=== PATIENT | female | born 1945 | race Asian ===

== ENCOUNTER 2018-01-20 09:08 | Emergency (ER) | payer MEDICAID, MEDICARE, OTHER ==
[~2018-01-20] VITALS: Ht 134.6 cm; Wt 56.8 kg
[~2018-01-20 09:08] MED LIST: ATEN-188 PO; LORA10TA7 PO; MECL-111 PO; SIMV-261 PO
[2018-01-20] MEDS ORDERED: AMLO-511 PO (09:12)
[2018-01-20] MEDS ORDERED: LOSA50TA37 PO (09:12)
[2018-01-20] MEDS ORDERED: ATOR20TA86 PO ×2 (09:12)
[2018-01-20] MEDS ORDERED: MECLIZINE HCL 25 MG TABLET PO ONE (11:15)
[2018-01-20] MEDS ORDERED: HydrOXYzine PAMOATE 50 MG CAPSULE PO ONE (11:15)
[2018-01-20 11:38] VITALS: BP 149/68
[2018-01-20 11:45] LABS: BASOPHILS % (AUTO) 0.7 % (0.0-2.0); EOSINOPHILS % (AUTO) 8.1 % (1.0-6.0); HEMATOCRIT 41.7 % (36-46); LYMPHOCYTES # (AUTO) 2.4 K/uL (1.0-4.8); LYMPHOCYTES % (AUTO) 30.4 % (22.0-44.0); MEAN CORPUSCULAR HEMOGLOBIN 29.2 pg (26.0-34.0); MEAN CORPUSCULAR HGB CONC 33.4 G/dL (31.0-37.0); MEAN CORPUSCULAR VOLUME 87 fL (80-100); MONOCYTES # (AUTO) 0.5 K/uL (0.1-1.0); MONOCYTES % (AUTO) 6.3 % (2.0-9.0); NEUTROPHILS # (AUTO) 4.4 K/uL (1.8-7.7); NEUTROPHILS % (AUTO) 54.5 % (40.0-70.0); PLATELET COUNT (AUTO) 256 K/uL (150-450); RED BLOOD CELL COUNT(AUTO) 4.77 MIL/uL (4.00-5.20); RED CELL DISTRIBUTION WIDTH 12.5 % (11.5-14.5)
[2018-01-20 11:58] LABS: ANION GAP 9 mmol/L (8-16); CALCIUM, TOTAL 9.5 mg/dL (8.8-10.5); CARBON DIOXIDE 29 mmol/L (22-29); CHLORIDE 104 mmol/L (98-107); CREATININE 0.64 mg/dL (0.60-1.30); GLUCOSE,RANDOM 90 mg/dL (70-110); POTASSIUM 4.2 mmol/L (3.5-5.1); SODIUM SERUM 142 mmol/L (136-145); UREA NITROGEN, BLOOD 11 mg/dL (7-18)
[2018-01-20 12:00] LABS: GLOMERULAR FILTR. RATE CALC > 60 mL/min (>60)
== END 2018-01-20 12:20 | disposition home or self-care (01) ==
LOC: EMS 09:09
DX: R42 Dizziness and giddiness (principal); I10 Essential (primary) hypertension; E78.00 Pure hypercholesterolemia, unspecified; K21.9 Gastro-esophageal reflux disease without esophagitis; Z79.899 Other long term (current) drug therapy
CPT/HCPCS: 93005; 99285

== ENCOUNTER 2018-03-29 08:51 | Emergency (ER) | payer OTHER ==
[~2018-03-29] VITALS: Ht 134.6 cm; Wt 61.4 kg
[~2018-03-29 08:51] MED LIST changes: +AMLO-511 PO; -ATEN-188 PO; +ATOR20TA86 PO; -LORA10TA7 PO; +LOSA50TA25 PO; -SIMV-261 PO
[2018-03-29 10:35] VITALS: BP 125/79
== END 2018-03-29 10:36 | disposition home or self-care (01) ==
LOC: EMS 08:52
DX: L85.3 Xerosis cutis (principal); K21.9 Gastro-esophageal reflux disease without esophagitis; E78.00 Pure hypercholesterolemia, unspecified; I10 Essential (primary) hypertension; Z79.899 Other long term (current) drug therapy

== ENCOUNTER 2018-04-28 09:48 | Emergency (ER) | payer OTHER ==
[~2018-04-28] VITALS: Ht 139.7 cm; Wt 54.5 kg
[2018-04-28] MEDS ORDERED: MECLIZINE HCL 25 MG TABLET PO ONE (10:15)
[2018-04-28 10:55] LABS: BASOPHILS % (AUTO) 0.8 % (0.0-2.0); EOSINOPHILS % (AUTO) 8.1 % (1.0-6.0); HEMATOCRIT 43.8 % (36-46); HEMOGLOBIN 14.8 g/dL (12.0-16.0); LYMPHOCYTES # (AUTO) 1.7 K/uL (1.0-4.8); LYMPHOCYTES % (AUTO) 23.5 % (22.0-44.0); MEAN CORPUSCULAR HEMOGLOBIN 29.9 pg (26.0-34.0); MEAN CORPUSCULAR HGB CONC 33.7 G/dL (31.0-37.0); MEAN CORPUSCULAR VOLUME 89 fL (80-100); MONOCYTES # (AUTO) 0.3 K/uL (0.1-1.0); MONOCYTES % (AUTO) 4.5 % (2.0-9.0); NEUTROPHILS # (AUTO) 4.5 K/uL (1.8-7.7); NEUTROPHILS % (AUTO) 63.1 % (40.0-70.0); PLATELET COUNT (AUTO) 255 K/uL (150-450); RED BLOOD CELL COUNT(AUTO) 4.93 MIL/uL (4.00-5.20); RED CELL DISTRIBUTION WIDTH 12.7 % (11.5-14.5)
[2018-04-28 11:10] LABS: ANION GAP 9 mmol/L (8-16); CARBON DIOXIDE 28 mmol/L (22-29); CHLORIDE 102 mmol/L (98-107); GLUCOSE,RANDOM 146 mg/dL (70-110); POTASSIUM 3.5 mmol/L (3.5-5.1); SODIUM SERUM 139 mmol/L (136-145); UREA NITROGEN, BLOOD 14 mg/dL (7-18)
[2018-04-28 11:14] LABS: GLOMERULAR FILTR. RATE CALC > 60 mL/min (>60)
[2018-04-28 11:21] LABS: B-TYPE NATRIURETIC PEPTIDE 29 pg/mL (0-100)
[2018-04-28 11:36] LABS: ALANINE AMINOTRANSFERASE 23 U/L (12-78); ALBUMIN 3.9 g/dL (3.4-5.0); ALKALINE PHOSPHATASE 98 U/L (46-116); ASPARTATE AMINOTRANSFERASE 16 U/L (15-37); BILIRUBIN,TOTAL 0.3 mg/dL (0.1-1.0); CREATINE KINASE, TOTAL ONLY 133 U/L (26-192); TOTAL PROTEIN, SERUM 8.9 g/dL (6.4-8.2)
[2018-04-28 11:54] LABS: APPEARANCE,URINE CLEAR (CLEAR); BILIRUBIN,URINE NEGATIVE (NEGATIVE); GLUCOSE, URINE (UA) NEGATIVE (NEGATIVE); KETONES,URINE NEGATIVE (NEGATIVE); LEUKOCYTE ESTERASE ,URINE NEGATIVE (NEGATIVE); NITRATE,URINE NEGATIVE (NEGATIVE); OCCULT BLOOD,URINE MODERATE (NEGATIVE); PH,URINE 6.5 (5.0-8.0); PROTEIN,URINE POS 1+ (NEGATIVE); UROBILINOGEN,URINE 0.2 mg/dL (<=1.0)
[2018-04-28 12:06] LABS: AMPHET/METH SCREEN,URINE NEGATIVE (NEGATIVE); BARBITURATE SCREEN, URINE NEGATIVE (NEGATIVE); BENZODIAZEPINES SCREEN,URINE NEGATIVE (NEGATIVE); CANNABINOID SCREEN,URINE NEGATIVE (NEGATIVE); COCAINE SCREEN,URINE NEGATIVE (NEGATIVE); METHADONE SCREEN, URINE NEGATIVE (NEGATIVE); OPIATE SCREEN,URINE NEGATIVE (NEGATIVE)
[2018-04-28 12:10] LABS: PHENCYCLIDINE SCREEN,URINE NEGATIVE (NEGATIVE)
[2018-04-28 12:48] LABS: BACTERIA,URINE None Seen /HPF (None Seen); WBC,URINE None Seen /HPF (0-5)
[2018-04-28 13:51] VITALS: BP 127/72
== END 2018-04-28 14:33 | disposition home or self-care (01) ==
LOC: EMS 09:49
DX: H81.391 Other peripheral vertigo, right ear (principal); K21.9 Gastro-esophageal reflux disease without esophagitis; E78.00 Pure hypercholesterolemia, unspecified; I10 Essential (primary) hypertension
CPT/HCPCS: 93005

== ENCOUNTER 2018-06-17 07:45 | Emergency (ER) | payer MEDICARE, OTHER ==
[~2018-06-17] VITALS: Ht 139.7 cm; Wt 59.1 kg
[~2018-06-17 07:45] MED LIST changes: -LOSA50TA25 PO; +LOSA50TA64 PO
[2018-06-17 07:46] VITALS: BP 176/82
[2018-06-17 08:34] LABS: APPEARANCE,URINE CLOUDY (CLEAR); BILIRUBIN,URINE NEGATIVE (NEGATIVE); GLUCOSE, URINE (UA) NEGATIVE (NEGATIVE); KETONES,URINE NEGATIVE (NEGATIVE); LEUKOCYTE ESTERASE ,URINE LARGE (NEGATIVE); NITRATE,URINE NEGATIVE (NEGATIVE); OCCULT BLOOD,URINE MODERATE (NEGATIVE); PH,URINE 6.5 (5.0-8.0); PROTEIN,URINE NEGATIVE (NEGATIVE); UROBILINOGEN,URINE 0.2 mg/dL (<=1.0)
[2018-06-17 08:51] LABS: BACTERIA,URINE Moderate /HPF (None Seen); WBC,URINE 51-100 /HPF (0-5)
== END 2018-06-17 10:36 | disposition home or self-care (01) ==
LOC: EMS 07:45
DX: N39.0 Urinary tract infection, site not specified (principal); E78.00 Pure hypercholesterolemia, unspecified; I10 Essential (primary) hypertension; K21.9 Gastro-esophageal reflux disease without esophagitis; Z79.899 Other long term (current) drug therapy
CPT/HCPCS: 87086

== ENCOUNTER 2018-06-24 10:54 | Emergency (ER) | payer MEDICARE, OTHER ==
[~2018-06-24] VITALS: Ht 139.7 cm; Wt 56.8 kg
[2018-06-24 11:55] VITALS: BP 171/83
== END 2018-06-24 12:27 | disposition home or self-care (01) ==
LOC: EMS 10:54
DX: I10 Essential (primary) hypertension (principal); K21.9 Gastro-esophageal reflux disease without esophagitis; E78.00 Pure hypercholesterolemia, unspecified; Z88.0 Allergy status to penicillin

== ENCOUNTER 2022-10-05 17:14 | Inpatient (IN) | payer MEDICARE, MEDICAID ==
[2022-10-05] VITALS (7 sets, daily range): BP systolic 126–150; BP diastolic 64–78
[~2022-10-05] VITALS: Ht 147.3 cm; Wt 43.1 kg
[~2022-10-05 17:14] MED LIST changes: +AMLO-257 PO; -AMLO-511 PO; +LOSA-382 PO; -LOSA50TA64 PO; -MECL-111 PO; +MECL-160 PO
[2022-10-05] MEDS ORDERED: ASPIRIN 325 MG TABLET PO ONE (17:45)
[2022-10-05] MEDS ORDERED: NITROGLYCERIN 0.4 MG SUBLINGUAL TABLET #25 SL ONE (17:45)
[2022-10-05] MEDS ORDERED: FUROSEMIDE 20 MG/2 ML VIAL IVP ONE ×2 (17:45→19:30)
[2022-10-05] MEDS ORDERED: NITROGLYCERIN 2% (1 GM=INCH) OINTMENT PACKET TP ONE (17:45)
[2022-10-05 18:02] LABS: BASOPHILS % (AUTO) 0.7 % (0.0-2.0); EOSINOPHILS % (AUTO) 2.7 % (1.0-6.0); LYMPHOCYTES # (AUTO) 1.9 K/uL (1.0-4.8); MEAN CORPUSCULAR HEMOGLOBIN 15.7 pg (26.0-34.0); MEAN CORPUSCULAR HGB CONC 27.7 G/dL (31.0-37.0); MEAN CORPUSCULAR VOLUME 57 fL (80-100); MONOCYTES # (AUTO) 0.7 K/uL (0.1-1.0); MONOCYTES % (AUTO) 8.1 % (2.0-9.0); NEUTROPHILS # (AUTO) 5.4 K/uL (1.8-7.7); NEUTROPHILS % (AUTO) 65.5 % (40.0-70.0); PLATELET COUNT (AUTO) 648 K/uL (150-450); RED BLOOD CELL COUNT(AUTO) 2.58 MIL/uL (4.00-5.20)
[2022-10-05 18:04] LABS: HEMATOCRIT 14.6 % (36-46); HEMOGLOBIN 4.1 g/dL (12.0-16.0)
[2022-10-05 18:10] LABS: B-TYPE NATRIURETIC PEPTIDE 874 pg/mL (0-100)
[2022-10-05] MEDS ORDERED: DiphenhydrAMINE HCL 25 MG CAPSULE PO ONE (18:15)
[2022-10-05] MEDS ORDERED: ACETAMINOPHEN 500 MG TABLET PO ONE (18:15)
[2022-10-05 18:16] LABS: ANION GAP 6 mmol/L (8-16); CALCIUM, TOTAL 7.5 mg/dL (8.8-10.5); CARBON DIOXIDE 25 mmol/L (22-29); CHLORIDE 107 mmol/L (98-107); CREATININE 0.59 mg/dL (0.60-1.30); GLOMERULAR FILTR. RATE CALC > 60 mL/min (>60); GLUCOSE,RANDOM 116 mg/dL (70-110); POTASSIUM 3.2 mmol/L (3.5-5.1); SODIUM SERUM 138 mmol/L (136-145); UREA NITROGEN, BLOOD 17 mg/dL (7-18)
[2022-10-05 18:22] LABS: ALBUMIN 1.5 g/dL (3.4-5.0); ALKALINE PHOSPHATASE 61 U/L (46-116); ASPARTATE AMINOTRANSFERASE 12 U/L (15-37); BILIRUBIN,TOTAL 0.1 mg/dL (0.1-1.0); TOTAL PROTEIN, SERUM 5.9 g/dL (6.4-8.2)
[2022-10-05 18:33] LABS: ALANINE AMINOTRANSFERASE 7 U/L (12-78)
[2022-10-05 18:51] LABS: COVID AG,FIA SOURCE NASOPHARYNGEAL
[2022-10-05] MEDS ORDERED: ACETAMINOPHEN 325 MG TABLET PO PRN (19:15)
[2022-10-05] MEDS ORDERED: POTASSIUM CHL 10 MEQ/WATER 50 ML IV PRN (19:15)
[2022-10-05] MEDS ORDERED: ONDANSETRON HCL 4 MG/2 ML VIAL IVP PRN (19:15)
[2022-10-05 20:13] LABS: % IRON SATURATION 2.3 % (22-44)
[2022-10-05 20:20] LABS: APPEARANCE,URINE CLEAR (CLEAR); BILIRUBIN,URINE NEGATIVE (NEGATIVE); GLUCOSE, URINE (UA) NEGATIVE (NEGATIVE); KETONES,URINE NEGATIVE (NEGATIVE); LEUKOCYTE ESTERASE ,URINE NEGATIVE (NEGATIVE); NITRATE,URINE NEGATIVE (NEGATIVE); OCCULT BLOOD,URINE NEGATIVE (NEGATIVE); PH,URINE 6.5 (5.0-8.0); PROTEIN,URINE NEGATIVE (NEGATIVE); SPECIFIC GRAVITIY, URINE 1.007 (1.003-1.030); UROBILINOGEN,URINE <=1.0 mg/dL (<=1.0)
[2022-10-05 20:39] LABS: BACTERIA,URINE None Seen /HPF (None Seen); RBC,URINE None Seen /HPF (0-2); SQUAMOUS EPITHELIAL CELL,UR Few /LPF (None Seen); WBC,URINE None Seen /HPF (0-5)
[2022-10-05 21:05] LABS: PATHOLOGY REVIEW, DIFF YES
[2022-10-05 21:13] LABS: HEMATOCRIT 14.6 % (36-46); HEMOGLOBIN 4.2 g/dL (12.0-16.0)
[2022-10-06] VITALS (7 sets, daily range): BP systolic 127–158; BP diastolic 58–89
[2022-10-06 02:20] LABS: HEMATOCRIT 23.4 % (36-46); HEMOGLOBIN 7.3 g/dL (12.0-16.0)
[2022-10-06 06:29] LABS: ANION GAP 5 mmol/L (8-16); CALCIUM, TOTAL 7.5 mg/dL (8.8-10.5); CARBON DIOXIDE 27 mmol/L (22-29); CHLORIDE 108 mmol/L (98-107); CREATININE 0.49 mg/dL (0.60-1.30); GLOMERULAR FILTR. RATE CALC > 60 mL/min (>60); GLUCOSE,RANDOM 87 mg/dL (70-110); SODIUM SERUM 140 mmol/L (136-145); UREA NITROGEN, BLOOD 14 mg/dL (7-18)
[2022-10-06 07:02] LABS: POTASSIUM 2.8 mmol/L (3.5-5.1)
[2022-10-06] MEDS ORDERED: SODIUM CHLORIDE 0.9% 250 ML IV ONE (07:41)
[2022-10-06] MEDS: ETHYL ALCOHOL 62% ANTISEPTIC NASAL SANITIZER 0.6 ML AMPUL NASAL SCH ×2 (08:43→20:19)
[2022-10-06 09:01] LABS: HEMATOCRIT 29.8 % (36-46); HEMOGLOBIN 9.1 g/dL (12.0-16.0)
[2022-10-06] MEDS: POTASSIUM CHLORIDE 20 MEQ ER TABLET PO PRN (09:37)
[2022-10-06 11:42] LABS: FERRITIN 6 ng/mL (8-252)
[2022-10-06] MEDS: PANTOPRAZOLE SODIUM 40 MG/VIAL IVP SCH ×2 (11:56→20:19)
[2022-10-06 15:06] LABS: HEMATOCRIT 27.8 % (36-46); HEMOGLOBIN 8.5 g/dL (12.0-16.0)
[2022-10-06] MEDS: FUROSEMIDE 20 MG TABLET PO SCH (20:19)
[2022-10-06] MEDS: CARVEDILOL 3.125 MG TABLET PO SCH (20:19)
[2022-10-06 22:36] LABS: HEMATOCRIT 30.8 % (36-46); HEMOGLOBIN 9.2 g/dL (12.0-16.0)
[2022-10-07] VITALS: BP 134/60
[2022-10-07 04:00] VITALS: BP 121/60
[2022-10-07 07:28] LABS: BASOPHILS % (AUTO) 1.6 % (0.0-2.0); EOSINOPHILS % (AUTO) 3.4 % (1.0-6.0); HEMATOCRIT 29.6 % (36-46); HEMOGLOBIN 9.2 g/dL (12.0-16.0); LYMPHOCYTES # (AUTO) 2.1 K/uL (1.0-4.8); LYMPHOCYTES % (AUTO) 20.4 % (22.0-44.0); MEAN CORPUSCULAR VOLUME 65 fL (80-100); MONOCYTES # (AUTO) 0.7 K/uL (0.1-1.0); MONOCYTES % (AUTO) 7.2 % (2.0-9.0); NEUTROPHILS # (AUTO) 6.8 K/uL (1.8-7.7); NEUTROPHILS % (AUTO) 67.4 % (40.0-70.0); PLATELET COUNT (AUTO) 523 K/uL (150-450); RED CELL DISTRIBUTION WIDTH 29.4 % (11.5-14.5)
[2022-10-07 07:42] LABS: ALANINE AMINOTRANSFERASE 6 U/L (12-78); ALBUMIN 1.6 g/dL (3.4-5.0); ALKALINE PHOSPHATASE 70 U/L (46-116); ANION GAP 7 mmol/L (8-16); ASPARTATE AMINOTRANSFERASE 15 U/L (15-37); BILIRUBIN,TOTAL 0.5 mg/dL (0.1-1.0); CALCIUM, TOTAL 7.8 mg/dL (8.8-10.5); CARBON DIOXIDE 28 mmol/L (22-29); CHLORIDE 105 mmol/L (98-107); CREATININE 0.52 mg/dL (0.60-1.30); GLOMERULAR FILTR. RATE CALC > 60 mL/min (>60); GLUCOSE,RANDOM 66 mg/dL (70-110); POTASSIUM 3.9 mmol/L (3.5-5.1); SODIUM SERUM 140 mmol/L (136-145); TOTAL PROTEIN, SERUM 6.3 g/dL (6.4-8.2); UREA NITROGEN, BLOOD 12 mg/dL (7-18)
[2022-10-07] MEDS: ETHYL ALCOHOL 62% ANTISEPTIC NASAL SANITIZER 0.6 ML AMPUL NASAL SCH ×2 (08:17→20:35)
[2022-10-07] MEDS: PANTOPRAZOLE SODIUM 40 MG/VIAL IVP SCH ×2 (08:17→20:35)
[2022-10-07 08:19] LABS: PLATELET MORPHOLOGY COMMENT GIANT PLTS PRESENT
[2022-10-07] MEDS: FUROSEMIDE 20 MG TABLET PO SCH ×2 (09:00→20:35)
[2022-10-07] MEDS: LOSARTAN POTASSIUM 25 MG TABLET PO SCH (09:00)
[2022-10-07] MEDS: CARVEDILOL 3.125 MG TABLET PO SCH ×2 (09:00→20:36)
[2022-10-07 10:22] VITALS: BP 122/66
[2022-10-07] MEDS ORDERED: PEG 3350/NA SULF,BICARB,CL/KCL 4000 ML SOLUTION PO ONE (16:15)
[2022-10-07 16:49] VITALS: BP 131/87
[2022-10-07 20:34] VITALS: BP 135/77
[2022-10-07 23:18] LABS: OCCULT BLOOD STOOL SINGLE ONLY POSITIVE (NEGATIVE)
[2022-10-07 23:54] LABS: C.DIFF GDH ANTIGEN, Stool Negative (Negative); C.DIFF TOXINS A&B, Stool Negative (Negative)
[2022-10-08 00:26] VITALS: BP 115/62
[2022-10-08 05:18] VITALS: BP 133/66
[2022-10-08 07:47] LABS: ALBUMIN 1.3 g/dL (3.4-5.0); ALKALINE PHOSPHATASE 56 U/L (46-116); ANION GAP 6 mmol/L (8-16); ASPARTATE AMINOTRANSFERASE 14 U/L (15-37); BILIRUBIN,TOTAL 0.3 mg/dL (0.1-1.0); CALCIUM, TOTAL 7.4 mg/dL (8.8-10.5); CARBON DIOXIDE 28 mmol/L (22-29); CHLORIDE 102 mmol/L (98-107); CREATININE 0.62 mg/dL (0.60-1.30); GLOMERULAR FILTR. RATE CALC > 60 mL/min (>60); GLUCOSE,RANDOM 78 mg/dL (70-110); POTASSIUM 3.6 mmol/L (3.5-5.1); SODIUM SERUM 136 mmol/L (136-145); TOTAL PROTEIN, SERUM 5.4 g/dL (6.4-8.2); UREA NITROGEN, BLOOD 14 mg/dL (7-18)
[2022-10-08 08:11] LABS: ALANINE AMINOTRANSFERASE 5 U/L (12-78)
[2022-10-08 08:19] VITALS: BP 118/65
[2022-10-08 08:42] LABS: BASOPHILS % (AUTO) 0.5 % (0.0-2.0); EOSINOPHILS % (AUTO) 4.2 % (1.0-6.0); HEMOGLOBIN 8.5 g/dL (12.0-16.0); LYMPHOCYTES # (AUTO) 1.9 K/uL (1.0-4.8); LYMPHOCYTES % (AUTO) 22.3 % (22.0-44.0); MEAN CORPUSCULAR HEMOGLOBIN 19.6 pg (26.0-34.0); MEAN CORPUSCULAR HGB CONC 30.3 G/dL (31.0-37.0); MEAN CORPUSCULAR VOLUME 65 fL (80-100); MONOCYTES # (AUTO) 0.8 K/uL (0.1-1.0); MONOCYTES % (AUTO) 8.8 % (2.0-9.0); NEUTROPHILS # (AUTO) 5.5 K/uL (1.8-7.7); NEUTROPHILS % (AUTO) 64.2 % (40.0-70.0); PLATELET COUNT (AUTO) 580 K/uL (150-450); RED BLOOD CELL COUNT(AUTO) 4.34 MIL/uL (4.00-5.20); RED CELL DISTRIBUTION WIDTH 29.8 % (11.5-14.5)
[2022-10-08] MEDS: FUROSEMIDE 20 MG TABLET PO SCH ×2 (08:58→20:02)
[2022-10-08] MEDS: PANTOPRAZOLE SODIUM 40 MG/VIAL IVP SCH ×2 (08:58→20:02)
[2022-10-08] MEDS: ETHYL ALCOHOL 62% ANTISEPTIC NASAL SANITIZER 0.6 ML AMPUL NASAL SCH ×2 (08:58→20:03)
[2022-10-08] MEDS: LOSARTAN POTASSIUM 25 MG TABLET PO SCH (08:58)
[2022-10-08] MEDS: CARVEDILOL 3.125 MG TABLET PO SCH ×2 (08:58→20:02)
[2022-10-08] MEDS ORDERED: SODIUM CHLORIDE 0.9% 1,000 ML ONE (09:30)
[2022-10-08] MEDS ORDERED: EPINEPHrine 1:10,000 [1 MG/10 ML] SYRINGE ONE (09:30)
[2022-10-08] MEDS ORDERED: MECLIZINE HCL 25 MG TABLET PO PRN (11:00)
[2022-10-08] MEDS ORDERED: PROPOFOL 1% 20 ML VIAL IVP ONE (12:00)
[2022-10-08] MEDS ORDERED: LIDOCAINE/PF 2% 5 ML VIAL SQ ONE (12:00)
[2022-10-08 12:17] VITALS: BP 122/55
[2022-10-08 12:29] LABS: PHOSPHORUS 3.9 mg/dL (2.5-4.9)
[2022-10-08] MEDS ORDERED: SODIUM CHLORIDE 0.9% 100 ML ONE (16:37)
[2022-10-08] MEDS ORDERED: IOHEXOL 350 MG/ML 100 ML VIAL ONE (16:37)
[2022-10-08] MEDS ORDERED: LORazepam 2 MG/ML VIAL IVP PRN (17:45)
[2022-10-08 19:47] VITALS: BP 107/55
[2022-10-08] MEDS: ATORVASTATIN CALCIUM 20 MG TABLET PO SCH (20:10)
[2022-10-09] VITALS (7 sets, daily range): BP systolic 97–121; BP diastolic 42–67
[2022-10-09 07:40] LABS: BASOPHILS % (AUTO) 0.5 % (0.0-2.0); EOSINOPHILS % (AUTO) 4.3 % (1.0-6.0); HEMATOCRIT 28.9 % (36-46); HEMOGLOBIN 8.9 g/dL (12.0-16.0); LYMPHOCYTES # (AUTO) 2.3 K/uL (1.0-4.8); LYMPHOCYTES % (AUTO) 31.2 % (22.0-44.0); MEAN CORPUSCULAR HEMOGLOBIN 19.6 pg (26.0-34.0); MEAN CORPUSCULAR HGB CONC 30.8 G/dL (31.0-37.0); MEAN CORPUSCULAR VOLUME 64 fL (80-100); MONOCYTES # (AUTO) 0.4 K/uL (0.1-1.0); MONOCYTES % (AUTO) 5.7 % (2.0-9.0); NEUTROPHILS # (AUTO) 4.4 K/uL (1.8-7.7); NEUTROPHILS % (AUTO) 58.3 % (40.0-70.0); PLATELET COUNT (AUTO) 594 K/uL (150-450); RED BLOOD CELL COUNT(AUTO) 4.53 MIL/uL (4.00-5.20); RED CELL DISTRIBUTION WIDTH 30.8 % (11.5-14.5)
[2022-10-09 08:33] LABS: ALANINE AMINOTRANSFERASE 6 U/L (12-78); ALBUMIN 1.5 g/dL (3.4-5.0); ALKALINE PHOSPHATASE 71 U/L (46-116); ANION GAP 6 mmol/L (8-16); ASPARTATE AMINOTRANSFERASE 16 U/L (15-37); BILIRUBIN,TOTAL 0.2 mg/dL (0.1-1.0); CALCIUM, TOTAL 7.5 mg/dL (8.8-10.5); CARBON DIOXIDE 30 mmol/L (22-29); CHLORIDE 102 mmol/L (98-107); CREATININE 0.76 mg/dL (0.60-1.30); GLOMERULAR FILTR. RATE CALC > 60 mL/min (>60); GLUCOSE,RANDOM 93 mg/dL (70-110); POTASSIUM 3.2 mmol/L (3.5-5.1); SODIUM SERUM 138 mmol/L (136-145); UREA NITROGEN, BLOOD 12 mg/dL (7-18)
[2022-10-09] MEDS: CARVEDILOL 3.125 MG TABLET PO SCH ×2 (09:00→21:46)
[2022-10-09] MEDS ORDERED: AmLODIPine BESYLATE 5 MG TABLET PO SCH (09:00)
[2022-10-09] MEDS ORDERED: LOSARTAN POTASSIUM 50 MG TABLET PO SCH (09:00)
[2022-10-09] MEDS: PANTOPRAZOLE SODIUM 40 MG/VIAL IVP SCH ×2 (09:44→21:46)
[2022-10-09] MEDS: LOSARTAN POTASSIUM 25 MG TABLET PO SCH (09:44)
[2022-10-09] MEDS: MULTIVITAMINS WITH MINERALS, THERAPEUTIC TABLET PO SCH (09:45)
[2022-10-09] MEDS: FUROSEMIDE 20 MG TABLET PO SCH ×2 (09:45→21:46)
[2022-10-09] MEDS: ETHYL ALCOHOL 62% ANTISEPTIC NASAL SANITIZER 0.6 ML AMPUL NASAL SCH ×2 (09:47→21:48)
[2022-10-09] MEDS: ATORVASTATIN CALCIUM 20 MG TABLET PO SCH (21:48)
[2022-10-10 04:21] VITALS: BP 112/51
[2022-10-10 06:48] LABS: ANION GAP 2 mmol/L (8-16); CALCIUM, TOTAL 7.4 mg/dL (8.8-10.5); CARBON DIOXIDE 34 mmol/L (22-29); CHLORIDE 103 mmol/L (98-107); CREATININE 0.59 mg/dL (0.60-1.30); GLOMERULAR FILTR. RATE CALC > 60 mL/min (>60); GLUCOSE,RANDOM 83 mg/dL (70-110); POTASSIUM 3.3 mmol/L (3.5-5.1); SODIUM SERUM 139 mmol/L (136-145); UREA NITROGEN, BLOOD 10 mg/dL (7-18)
[2022-10-10 07:19] VITALS: BP 112/64
[2022-10-10] MEDS: ETHYL ALCOHOL 62% ANTISEPTIC NASAL SANITIZER 0.6 ML AMPUL NASAL SCH ×2 (08:55→21:00)
[2022-10-10] MEDS: PANTOPRAZOLE SODIUM 40 MG/VIAL IVP SCH ×2 (08:55→21:00)
[2022-10-10] MEDS: CARVEDILOL 3.125 MG TABLET PO SCH ×2 (08:56→21:00)
[2022-10-10] MEDS: SACUBITRIL/VALSARTAN 24-26 MG TABLET PO SCH ×2 (08:56→21:00)
[2022-10-10] MEDS: SPIRONOLACTONE 25 MG TABLET PO SCH (08:56)
[2022-10-10] MEDS: MULTIVITAMINS WITH MINERALS, THERAPEUTIC TABLET PO SCH (08:56)
[2022-10-10] MEDS: FUROSEMIDE 20 MG TABLET PO SCH ×2 (08:57→21:00)
[2022-10-10] MEDS: POTASSIUM CHLORIDE 20 MEQ ER TABLET PO PRN (10:57)
[2022-10-10 11:07] VITALS: BP 116/67
[2022-10-10 15:33] VITALS: BP 127/69
[2022-10-10 20:00] VITALS: BP 140/70
[2022-10-10] MEDS: ATORVASTATIN CALCIUM 20 MG TABLET PO SCH (21:00)
[2022-10-10] MEDS ORDERED: PEG 3350/NA SULF,BICARB,CL/KCL 4000 ML SOLUTION PO ONE (22:00)
[2022-10-11 00:30] VITALS: BP 129/65
[2022-10-11 05:33] VITALS: BP 118/62
[2022-10-11] MEDS ORDERED: PHENYLEPHRINE 200 MG/D5%-WATER 250 ML IV PRN (08:00)
[2022-10-11] MEDS ORDERED: BUPIVACAINE/EPI/PF 0.5% 30 ML VIAL ONE (08:08)
[2022-10-11] MEDS ORDERED: BUPIVACAINE HCL/PF 0.5% 30 ML VIAL ONE ×2 (08:08)
[2022-10-11] MEDS ORDERED: LIDOCAINE/PF 2% 5 ML VIAL ONE (08:09)
[2022-10-11] MEDS ORDERED: SODIUM CHLORIDE 0.9% 1,000 ML ONE (08:12)
[2022-10-11] MEDS: FUROSEMIDE 20 MG TABLET PO SCH (09:00)
[2022-10-11] MEDS: ETHYL ALCOHOL 62% ANTISEPTIC NASAL SANITIZER 0.6 ML AMPUL NASAL SCH (09:00)
[2022-10-11] MEDS: MULTIVITAMINS WITH MINERALS, THERAPEUTIC TABLET PO SCH (09:00)
[2022-10-11] MEDS: CARVEDILOL 3.125 MG TABLET PO SCH (09:00)
[2022-10-11] MEDS: PANTOPRAZOLE SODIUM 40 MG/VIAL IVP SCH (09:00)
[2022-10-11] MEDS: SACUBITRIL/VALSARTAN 24-26 MG TABLET PO SCH (09:00)
[2022-10-11] MEDS: SPIRONOLACTONE 25 MG TABLET PO SCH (09:00)
== END 2022-10-11 18:45 | disposition left against medical advice (07) | DRG 374 ==
LOC: EMS 17:19 → ICU 21:16 → 5S 10-07 08:45
PROVIDERS: ADMIT Internal Medicine; ATTEND Internal Medicine
PROC: 30233N1 Transfusion of Nonautologous Red Blood Cells into Peripheral Vein, Percutaneous Approach (ICD-10-PCS; 2022-10-05)
PROC: 0DJ08ZZ Inspection of Upper Intestinal Tract, Via Natural or Artificial Opening Endoscopic (ICD-10-PCS; principal; 2022-10-08 10:30)
PROC: 0DBL8ZX Excision of Transverse Colon, Via Natural or Artificial Opening Endoscopic, Diagnostic (ICD-10-PCS; 2022-10-08 10:30)
DX: C18.4 Malignant neoplasm of transverse colon (principal); E43 Unspecified severe protein-calorie malnutrition; I50.23 Acute on chronic systolic (congestive) heart failure; I21.A1 Myocardial infarction type 2; D62 Acute posthemorrhagic anemia; Z68.1 Body mass index [BMI] 19.9 or less, adult; R45.851 Suicidal ideations; E87.6 Hypokalemia; I11.0 Hypertensive heart disease with heart failure; I50.83 High output heart failure; D50.9 Iron deficiency anemia, unspecified; K29.70 Gastritis, unspecified, without bleeding; Z53.29 Procedure and treatment not carried out because of patient's decision for other reasons; K21.9 Gastro-esophageal reflux disease without esophagitis; E78.5 Hyperlipidemia, unspecified; F29 Unspecified psychosis not due to a substance or known physiological condition; K57.90 Diverticulosis of intestine, part unspecified, without perforation or abscess without bleeding; Z88.0 Allergy status to penicillin; Z20.822 Contact with and (suspected) exposure to COVID-19
CPT/HCPCS: 71045; 74178; 80048; 80053; 81001; 82271; 82378; 82728; 83010; 83540; 83550; 83735; 83880; 84100; 84132; 84484; 85014; 85018; 85025; 85045; 86850; 86900; 86901; 86923; 87081; 87324; 87449; 92523; 92610; 93005; 93306; 99291; C9113; G0378; J0171; J1940; J2370; J2704; J3480; J3490; J7030; J7050; P9016; Q9967; 36415-L1; 36415-TC

== ENCOUNTER 2023-02-22 19:39 | Emergency (ER) | payer MEDICARE, MEDICAID ==
[~2023-02-22] VITALS: Ht 147.3 cm; Wt 43.1 kg
[~2023-02-22 19:39] MED LIST changes: +ATOR20TA PO; -ATOR20TA86 PO; -MECL-160 PO; +MECL-302 PO
[2023-02-22] MEDS ORDERED: ACETAMINOPHEN 325 MG TABLET PO ONE (20:15)
[2023-02-22 21:11] LABS: COVID AG,FIA SOURCE NASAL SWAB
[2023-02-22 21:33] LABS: SARS-COV2 (COVID) ANTIGEN,FIA Negative (Negative)
[2023-02-22 21:34] LABS: INFLUENZA TYPE A NEGATIVE FOR TYPE A (NEGATIVE); INFLUENZA TYPE B NEGATIVE FOR TYPE B (NEGATIVE)
[2023-02-22] MEDS ORDERED: SODIUM CHLORIDE 0.9% 1,000 ML IV ONE (22:45)
[2023-02-22] MEDS ORDERED: 0.9% SODIUM CHLORIDE 10 ML SYRINGE IVP PRN (22:45)
[2023-02-22 23:20] LABS: B-TYPE NATRIURETIC PEPTIDE 1200 pg/mL (0-100)
[2023-02-22 23:21] LABS: BASOPHILS % (AUTO) 0.4 % (0.0-2.0); EOSINOPHILS % (AUTO) 0.6 % (1.0-6.0); LYMPHOCYTES # (AUTO) 1.1 K/uL (1.0-4.8); LYMPHOCYTES % (AUTO) 10.5 % (22.0-44.0); MEAN CORPUSCULAR HEMOGLOBIN 17.6 pg (26.0-34.0); MEAN CORPUSCULAR HGB CONC 29.7 G/dL (31.0-37.0); MEAN CORPUSCULAR VOLUME 59 fL (80-100); MONOCYTES # (AUTO) 0.9 K/uL (0.1-1.0); MONOCYTES % (AUTO) 8.7 % (2.0-9.0); NEUTROPHILS # (AUTO) 8.6 K/uL (1.8-7.7); NEUTROPHILS % (AUTO) 79.8 % (40.0-70.0); PLATELET COUNT (AUTO) 749 K/uL (150-450); PROTHROMBIN TIME 10.8 SEC (9.4-11.6); RED BLOOD CELL COUNT(AUTO) 2.42 MIL/uL (4.00-5.20); RED CELL DISTRIBUTION WIDTH 25.2 % (11.5-14.5); WHITE BLOOD COUNT (AUTO) 10.8 K/uL (4.5-11.0)
[2023-02-22 23:25] LABS: LACTIC ACID 0.8 mmol/L (0.4-2.0)
[2023-02-22 23:27] LABS: HEMATOCRIT 14.4 % (36-46); HEMOGLOBIN 4.3 g/dL (12.0-16.0)
[2023-02-22 23:30] LABS: ANION GAP 10 mmol/L (8-16); CALCIUM, TOTAL 7.8 mg/dL (8.8-10.5); CARBON DIOXIDE 24 mmol/L (22-29); CHLORIDE 98 mmol/L (98-107); CREATININE 0.61 mg/dL (0.60-1.30); GLOMERULAR FILTR. RATE CALC > 60 mL/min (>60); GLUCOSE,RANDOM 117 mg/dL (70-110); POTASSIUM 3.5 mmol/L (3.5-5.1); SODIUM SERUM 132 mmol/L (136-145); UREA NITROGEN, BLOOD 13 mg/dL (7-18)
[2023-02-22] MEDS ORDERED: PANTOPRAZOLE SODIUM 40 MG/VIAL IVP ONE (23:30)
[2023-02-22 23:35] LABS: ALBUMIN 1.6 g/dL (3.4-5.0); ALKALINE PHOSPHATASE 57 U/L (46-116); ASPARTATE AMINOTRANSFERASE 10 U/L (15-37); BILIRUBIN,TOTAL 0.2 mg/dL (0.1-1.0); TOTAL PROTEIN, SERUM 6.5 g/dL (6.4-8.2)
[2023-02-22 23:40] LABS: TROPONIN I-HIGH SENSITIVITY 93 ng/L (<51)
[2023-02-22 23:44] LABS: ALANINE AMINOTRANSFERASE < 6 U/L (12-78)
[2023-02-23] VITALS (17 sets, daily range): BP systolic 82–151; BP diastolic 39–89; PULSE 74–91; RESP 12–18; TEMP 98.4–99.7
[2023-02-23] MEDS ORDERED: PANTOPRAZOLE SODIUM 80 MG in SODIUM CHLORIDE 0.9% 100 ML IV SCH ×2
[2023-02-23] MEDS ORDERED: OCTREOTIDE ACETATE 100 MCG/ML VIAL IVP ONE
[2023-02-23 00:09] LABS: APPEARANCE,URINE CLEAR (CLEAR); BILIRUBIN,URINE NEGATIVE (NEGATIVE); COLOR,URINE COLORLESS (YELLOW); GLUCOSE, URINE (UA) NEGATIVE (NEGATIVE); KETONES,URINE NEGATIVE (NEGATIVE); LEUKOCYTE ESTERASE ,URINE NEGATIVE (NEGATIVE); NITRATE,URINE NEGATIVE (NEGATIVE); OCCULT BLOOD,URINE SMALL (NEGATIVE); PROTEIN,URINE NEGATIVE (NEGATIVE); SPECIFIC GRAVITIY, URINE 1.007 (1.003-1.030); UROBILINOGEN,URINE <=1.0 mg/dL (<=1.0)
[2023-02-23 00:13] LABS: PATHOLOGY REVIEW, DIFF YES; RBC MORPHOLOGY COMMENT DIMORPHIC RBC
[2023-02-23 00:15] LABS: BACTERIA,URINE None Seen /HPF (None Seen); RBC,URINE 0-2 /HPF (0-2); WBC,URINE None Seen /HPF (0-5)
[2023-02-23 00:16] LABS: SQUAMOUS EPITHELIAL CELL,UR Few /LPF (None Seen)
[2023-02-23] MEDS ORDERED: FERR-89 PO (00:56)
[2023-02-23 03:01] LABS: TROPONIN I-HIGH SENSITIVITY 117 ng/L (<51)
[2023-02-23] MEDS ORDERED: ACETAMINOPHEN 325 MG TABLET PO ONE (03:15)
[2023-02-23 11:02] LABS: BASOPHILS % (AUTO) 0.6 % (0.0-2.0); EOSINOPHILS % (AUTO) 0.5 % (1.0-6.0); HEMATOCRIT 28.7 % (36-46); HEMOGLOBIN 9.1 g/dL (12.0-16.0); LYMPHOCYTES # (AUTO) 1.3 K/uL (1.0-4.8); LYMPHOCYTES % (AUTO) 11.1 % (22.0-44.0); MEAN CORPUSCULAR HEMOGLOBIN 23.3 pg (26.0-34.0); MEAN CORPUSCULAR HGB CONC 31.7 G/dL (31.0-37.0); MEAN CORPUSCULAR VOLUME 74 fL (80-100); MONOCYTES # (AUTO) 1.3 K/uL (0.1-1.0); MONOCYTES % (AUTO) 11.5 % (2.0-9.0); NEUTROPHILS # (AUTO) 8.8 K/uL (1.8-7.7); NEUTROPHILS % (AUTO) 76.3 % (40.0-70.0); PLATELET COUNT (AUTO) 578 K/uL (150-450); RED CELL DISTRIBUTION WIDTH 31.6 % (11.5-14.5); WHITE BLOOD COUNT (AUTO) 11.5 K/uL (4.5-11.0)
[2023-02-23 11:12] LABS: RBC MORPHOLOGY COMMENT DIMORPHIC RBC
== END 2023-02-23 12:00 | disposition short-term general hospital (02) ==
LOC: EMS 19:40
DX: C80.1 Malignant (primary) neoplasm, unspecified (principal); D64.9 Anemia, unspecified; K92.2 Gastrointestinal hemorrhage, unspecified; E78.00 Pure hypercholesterolemia, unspecified; I10 Essential (primary) hypertension; Z88.0 Allergy status to penicillin; Z20.822 Contact with and (suspected) exposure to COVID-19
CPT/HCPCS: 99285; 36430; 96365; 71045; 96375; 96361; 87426; 80053; 81001; 82271; 83605; 83880; 84484; 85025; 85610; 87040; 87804; 86850; 86900; 86901; 86923; 93005; 84145; 74176; 36415; P9016; J7030; J2354; C9113; J7050